=== PATIENT | male | born 1985 | race Two or more races ===

== ENCOUNTER 2017-01-12 18:00 | Emergency (ER) | payer BC ==
[~2017-01-12] VITALS: Ht 172.7 cm; Wt 79.4 kg
--- NOTE | 2017-01-12 18:15 | NUR ---
PT BIB [facility] C/O OD ON SUBUTEX AND POSSIBLY VIVITROL. PT UNABLE TO ANSWER QUESTIONS CLEARLY. DOES NOT KNOW DOSE TAKEN. RESP EVEN UNLABORED. SKIN WARM NONDIAPHORETIC. PT APPEARS ANXIOUS, ROCKING SELF IN BED, ASKING FOR MORPHINE AND ANXIETY MEDS. PLACED ON MONITOR. IN ER BED 12. SLURRY CONTROL TENDER AT BEDSIDE.
[2017-01-12] MEDS ORDERED: IV SET PRIMARY 1 EA INFUS.SET MC ONE (18:16)
[2017-01-12] MEDS ORDERED: IV NS 0.9% 1,000 ML ONE (18:16)
[2017-01-12] MEDS ORDERED: LORAZEPAM INJ 2 MG/ML VIAL ONE ×2 (18:16→19:09)
[2017-01-12] MEDS ORDERED: ONDANSETRON HCL/PF 4 MG/2 ML VIAL ONE (18:27)
[2017-01-12 18:29] LABS: BASOPHILS # (AUTO) 0.1 /CMM (0.0-0.2); BASOPHILS % (AUTO) 0.8 % (0.0-2.0); EOSINOPHILS # (AUTO) 0.1 /CMM (0.0-0.7); HEMATOCRIT 45 % (39-51); HEMOGLOBIN 15.1 g/dL (13.5-17.5); LYMPHOCYTES # (AUTO) 1.3 /CMM (0.8-4.8); LYMPHOCYTES % (AUTO) 14.1 % (20.0-44.0); MEAN CORPUSCULAR HEMOGLOBIN 31 PG (26.0-33.0); MEAN CORPUSCULAR HGB CONC 34 g/dl (31.0-36.0); MEAN CORPUSCULAR VOLUME 92 fL (80-96); MONOCYTES # (AUTO) 0.3 /CMM (0.1-1.30); NEUTROPHILS # (AUTO) 7.2 /CMM (1.8-8.9); NEUTROPHILS % (AUTO) 81.1 % (43.0-81.0); PLATELET COUNT (AUTO) 251 /CMM (150-450); RDW COEFFICIENT OF VARIATION 11.4 (11.5-15.0); RED BLOOD CELL COUNT(AUTO) 4.91 MIL/uL (4.5-6.0)
[2017-01-12] MEDS: LORAZEPAM INJ 2 MG/ML VIAL IV ONE ×2 (18:29→19:25)
[2017-01-12] MEDS: IV NS 0.9% 1,000 ML BAG IV ONE (18:29)
[2017-01-12] MEDS: ONDANSETRON HCL/PF 4 MG/2 ML VIAL IVP ONE (18:31)
[2017-01-12 18:37] LABS: CALCIUM, SERUM 9.8 mg/dL (8.5-10.1); CREATININE 0.9 mg/dL (0.6-1.3); POTASSIUM 3.7 mmol/L (3.5-5.1)
[2017-01-12 18:42] LABS: ALBUMIN 4.4 g/dL (3.4-5.0); BILIRUBIN,DIRECT 0.1 mg/dL (0.0-0.2); BILIRUBIN,TOTAL 0.5 mg/dL (0.2-1.0); TOTAL PROTEIN, SERUM 7.8 g/dL (6.4-8.2)
--- NOTE | 2017-01-12 18:52 | NUR ---
ALEJANDRA REAGAN - SPONSOR @ -[facility]; FACILITY. PATIENT HAD JANNA @ [facility] TODAY IN AM. TOOK SUBUTEX PO AT [facility]HAB.
--- NOTE | 2017-01-12 18:59 | NUR ---
Sebastian garza in ED - 01/12/17 at 1903 by HFOX PT TRANSPORTED TO CT IN STABLE CONDITION
[2017-01-12] MEDS ORDERED: BUPR2TAB3 SL (19:01)
[2017-01-12] MEDS ORDERED: NALT380S2 IM (19:01)
[2017-01-12] MEDS ORDERED: CLONIDINE HCL 0.1 MG TABLET ONE (19:09)
[2017-01-12] MEDS: CLONIDINE HCL 0.1 MG TABLET PO ONE (19:25)
--- NOTE | 2017-01-12 19:25 | NUR ---
PT RESTING IN BED, REMAINS AGITATED AND ROLLING IN THE BED. FAMILY AT BEDSIDE. TIP BANDER DREGASSE AT BEDSIDE. ATIVAN AND CLONIDINE ADMINISTERED ORDERED. VSS.
--- NOTE | 2017-01-12 20:17 | NUR ---
PT STOOD UP AND PULLED OUT IV. GAIT UNSTEADY. ASSISTED BACK INTO BED. PRESSURE DRESSING APPLIED.
--- NOTE | 2017-01-12 20:51 | NUR ---
PT ATTEMPTED TO LEAVE ER. SPEAKIG COHERENTLY. ASKED TO RETURN TO BED; PT COMPLIED. NAD NOTED. STREET WORKER NOTIFIED.
--- NOTE | 2017-01-12 20:52 | NUR ---
TEST FIXTURE ASSEMBLER ON PHONE WITH [facility]
[2017-01-12 22:32] LABS: APPEARANCE,URINE CLEAR (CLEAR); BILIRUBIN,URINE NEGATIVE (NEGATIVE); BLOOD, URINE NEGATIVE Ery/uL (NEGATIVE); COLOR,URINE YELLOW (YELLOW); KETONES,URINE NEGATIVE (NEGATIVE); LEUKOCYTE ESTERASE ,URINE NEGATIVE (NEGATIVE); NITRITE, URINE NEGATIVE (NEGATIVE); PROTEIN,URINE NEGATIVE (NEGATIVE); UGLUCOSE NEGATIVE (NEGATIVE); UROBILINOGEN,URINE 0.2 EU/dL (0.2)
--- NOTE | 2017-01-12 22:44 | NUR ---
RESTING QUIETLY. NAD NOTED. PT WAS ABLE TO AMBULATE AND ORIENTED X3 WHEN SPEAKING WITH LIVESTOCK AGENT. BROTHER AT BEDSIDE. AWAITING TOX SCREEN RESULTS.
[2017-01-12 22:46] LABS: CANNABINOID, URINE NEGATIVE (NEGATIVE); PHENCYCLIDINE SCREEN,URINE NEGATIVE (NEGATIVE)
[2017-01-12 23:18] VITALS: BP 114/91
--- NOTE | 2017-01-12 23:19 | NUR ---
Patient discharged to home in stable condition. Written and verbal after care instructions given. Patient verbalizes understanding of instruction. AMBULATORY WITH STEADY GAIT. RELEASED INTO CARE OF HIS BROTHER.
== END 2017-01-12 23:19 | disposition home or self-care (01) ==
LOC: ER 18:05
DX: F11.23 Opioid dependence with withdrawal (principal); F17.200 Nicotine dependence, unspecified, uncomplicated; R11.2 Nausea with vomiting, unspecified; T50.995A Adverse effect of other drugs, medicaments and biological substances, initial encounter; Y92.89 Other specified places as the place of occurrence of the external cause
CPT/HCPCS: 36415; 71010; 80048; 80076; 80305; 81001; 84484; 85025; 93005; 96361; 96372; 96374; 96375; 99285; A4606; J2060 ×2; J2405; J7030; 81000-TC; Z7610